=== PATIENT | female | born 1960 | race Two or more races ===

== ENCOUNTER 2022-07-01 06:59 | Outpatient (CLI) | payer OTHER | END 2022-07-01 07:00 | disposition home or self-care (01) | LOC: LAB 06:59 | PROVIDERS: ATTEND General Practice | DX: I11.9 Hypertensive heart disease without heart failure (principal); R50.9 Fever, unspecified; E78.1 Pure hyperglyceridemia; E08.319 Diabetes mellitus due to underlying condition with unspecified diabetic retinopathy without macular edema; E11.9 Type 2 diabetes mellitus without complications; R82.90 Unspecified abnormal findings in urine ==

== ENCOUNTER 2022-07-01 08:18 | Outpatient (CLI) | payer OTHER | END 2022-07-01 08:47 | disposition home or self-care (01) | LOC: MAMO-SONO 08:18 | PROVIDERS: ATTEND General Practice | DX: D24.9 Benign neoplasm of unspecified breast (principal); M77.8 Other enthesopathies, not elsewhere classified; M46.02 Spinal enthesopathy, cervical region; M46.04 Spinal enthesopathy, thoracic region; M46.06 Spinal enthesopathy, lumbar region; M51.36 Other intervertebral disc degeneration, lumbar region | CPT/HCPCS: 72148 ==

== ENCOUNTER → 2022-07-09 | Outpatient (CLI) | payer OTHER | END | disposition home or self-care (01) | LOC: RAD 07:30 | PROVIDERS: ATTEND Chiropractor | DX: M46.02 Spinal enthesopathy, cervical region (principal); M46.04 Spinal enthesopathy, thoracic region; M46.06 Spinal enthesopathy, lumbar region ==

== ENCOUNTER 2022-10-30 07:11 | Outpatient (CLI) | payer OTHER | END 2022-10-30 07:12 | disposition home or self-care (01) | LOC: LAB 07:11 | PROVIDERS: ATTEND General Practice | DX: E11.9 Type 2 diabetes mellitus without complications (principal); E03.9 Hypothyroidism, unspecified; E78.2 Mixed hyperlipidemia; E80.7 Disorder of bilirubin metabolism, unspecified; N18.2 Chronic kidney disease, stage 2 (mild); R82.90 Unspecified abnormal findings in urine; R74.8 Abnormal levels of other serum enzymes; E72.11 Homocystinuria; R19.5 Other fecal abnormalities; R79.1 Abnormal coagulation profile ==